=== PATIENT | female | born 1990 | race Caucasian/White ===

== ENCOUNTER 2021-10-18 09:25 | Emergency (ER) | payer BC ==
[~2021-10-18] VITALS: Ht 175.3 cm; Wt 71.2 kg
--- NOTE | 2021-10-19 12:33 | EKG ---
[facility] [address] [facility] [place] [address] Signed Sinus rhythm with premature atrial complexes Otherwise normal ECG No previous ECGs available Confirmed by MUNIR GRIMES MD ([id number] on 10/19/2021 12:32:58 PM Electronically Signed By: MUNIR GRIMES MD 10/19/21 1233 PATIENT NAME: NADIA MEADE Electrocardiogram DATE OF : 89 PHYSICIAN: MUNIR GRIMES MD REPORT #: [id number] REPORT IS CONFIDENTIAL AND NOT TO BE RELEASED WITHOUT AUTHORIZATION
== END 2021-10-18 10:27 | disposition home or self-care (01) ==
LOC: ED 09:25
DX: R00.2 Palpitations (principal)
CPT/HCPCS: 93005; 93010; 99284-25